=== PATIENT | female | born 1990 | race Caucasian/White ===

== ENCOUNTER → 2023-10-29 19:53 | Outpatient (REF) | payer BC, SELFPAY | LOC: MRI 19:53 | PROVIDERS: ATTENDING PHYSICIAN Ophthalmology Neuro-ophthalmology; FAMILY PHYSICIAN Nurse Practitioner | DX: H47.12 Papilledema associated with decreased ocular pressure (principal) | CPT/HCPCS: 70543; 70553; A9575 ==

== ENCOUNTER → 2023-10-31 19:40 | Outpatient (REF) | payer BC, SELFPAY | LOC: MRI 19:40 | PROVIDERS: ATTENDING PHYSICIAN Ophthalmology Neuro-ophthalmology; FAMILY PHYSICIAN Nurse Practitioner | DX: H47.12 Papilledema associated with decreased ocular pressure (principal) | CPT/HCPCS: 70546; A9585 ==